=== PATIENT | female | born 1930 | race Caucasian/White ===

== ENCOUNTER → 2016-11-16 | Outpatient (CLI) | payer MEDICARE | LOC: GMAH 10:27 | PROVIDERS: ATTEND Family Medicine | DX: E78.00 Pure hypercholesterolemia, unspecified (principal) ==

== ENCOUNTER 2017-02-28 09:48 | Emergency (ER) | payer MEDICARE ==
[2017-02-28] MEDS ORDERED: methylPREDNISolone SODIUM SUC 125 MG/2 ML VIAL IM ONE (10:06)
[2017-02-28 10:09] VITALS: BP 135/108; TEMP 97; O2SAT 98
--- NOTE | 2017-02-28 10:11 | ED.PDOC ---
History of Present Illness - General Chief Complaint: Skin/Abrasion/Tear Stated Complaint: left elbow swelling and redness Time Seen by Provider: 02/28/17 10:00 Source: patient, RN notes reviewed, Vital Signs reviewed Exam Limitations: no limitations - History of Present Illness Initial Comments: Patient comes in with c/o of L elbow itching, redness and swelling X 2 days. Started while sitting out on her back porch Tuesday evening. She has been using OTC Benadryl cream but has not taken any orally for this. Timing/Duration: constant - 2 days ago Severity: moderate Location: extremities - L elbow Improving Factors: nothing Worsening Factors: nothing Associated Symptoms: itching Review of Systems - Review of Systems Constitutional: States: no symptoms reported Respiratory: States: no symptoms reported Cardiology: States: no symptoms reported Musculoskeletal: States: no symptoms reported Skin: States: see HPI All other Systems: No Change from Baseline Past Medical History (General) - Patient Medical History Hx Stroke: No Hx of COPD: No Hx Cardiac Disorders: No Hx Hypertension: Yes Hx Diabetes: No Surgical History: cholecystectomy, other - Social History Hx Tobacco Use: Yes - 1/2 pack a day Hx Alcohol Use: Yes - 2 glass wine daily Hx Substance Use: No Hx Substance Use Treatment: No Hx Depression: No - Activities of Daily Living Hospice Agency (if applicable):: None - Female History Patient is a Female of Child Bearing Age (10 -59 yrs old): No Patient : No Family Medical History - Family History Mother Family History: Unknown Physical Exam - Physical Exam General Appearance: Alert, Comfortable, No apparent distress, Well Developed, Well Groomed, Well Hydrated, Well Nourished Respiratory: no respiratory distress Extremity: normal range of motion, inflammation, swelling - Left elbow Neurologic: no motor/sensory deficits, alert, normal mood/affect, oriented x 3 Skin Exam: warm/dry, normal color Skin Problem Location: upper extremities - Left elbow Skin Character: erythema, swelling, urticarial, warm, other - Left elbow is erythematous, edematous and warm. No bursa swelling. Comments: Vital Signs 02/28/17 09:55 Temperature 97.0 F L Pulse Rate [ 89 pulse ox] Respiratory 20 Rate Blood Pressure 135/108 [Left Arm] O2 Sat by Pulse 98 Oximetry Progress - Progress Progress: 02/28/17 10:15 Solu-Medrol 125mg IM given Recommended OTC oral Benadryl and ice Warning given for any signs of infection. Departure - Departure Clinical Impression: Urticaria Insect bites Qualifiers: Encounter type: initial encounter Qualified Code(s): W57.XXXA - Bitten or stung by nonvenomous insect and other nonvenomous arthropods, initial encounter Time of Disposition: 10:35 Disposition: Discharge to Home or Self Care Condition: Good Departure Forms: ED Discharge - Pt. Copy, Patient Portal Self Enrollment Instructions: DI for Insect Allergy Diet: resume usual diet Activity: increase activity as tolerated Referrals: Neptali Pérez MD [Primary Care Provider] - 1-2 Weeks Additional Instructions: OTC Benadryl 1 pill every 6 hours as needed Ice area for 15-20 minutes 3-5X/day Any signs of infection follow up with your MD or return to ER
== END 2017-02-28 10:33 | disposition home or self-care (01) ==
LOC: ER 09:48
DX: S50.362A Insect bite (nonvenomous) of left elbow, initial encounter (principal); L50.9 Urticaria, unspecified; I10 Essential (primary) hypertension; F17.200 Nicotine dependence, unspecified, uncomplicated; W57.XXXA Bitten or stung by nonvenomous insect and other nonvenomous arthropods, initial encounter; Y92.008 Other place in unspecified non-institutional (private) residence as the place of occurrence of the external cause

== ENCOUNTER → 2017-11-16 | Outpatient (CLI) | payer MEDICARE | LOC: GMAH 11:33 | PROVIDERS: ATTEND Family Medicine | DX: I10 Essential (primary) hypertension (principal); E78.00 Pure hypercholesterolemia, unspecified ==

== ENCOUNTER 2018-02-27 14:03 | Inpatient (IN) | payer MEDICARE ==
[2018-02-27] MEDS ORDERED: ONDANSETRON INJ 4 MG/2 ML VIAL IV ONE (14:36)
[2018-02-27] MEDS ORDERED: MORPHINE SULFATE INJ 10 MG/ML VIAL IV ONE (14:38)
[2018-02-27] MEDS: SODIUM CHLORIDE 0.9% (FLUSH) 10 ML SYG IV PRN (14:49)
--- NOTE | 2018-02-27 15:12 | ED.PDOC ---
History of Present Illness - General Chief Complaint: Abdominal Pain Stated Complaint: CONSTIPATION Time Seen by Provider: 02/27/18 14:10 Information Source: patient Exam Limitations: no limitations - History of Present Illness Initial Comments: PT PRESENTS WITH COMPLAINT OF CONSTIPATION, ANAL LEAKAGE, AND URINARY RETENTION FOR THE PAST 24 HOURS. PT REPORTS INTERMITTENT EPISODES OF RECTAL PAIN AND STATES SHE IS ONLY ABLE TO HAVE SMALL BOWEL MOVEMENTS. PT REPORTS RECENT BACK INJURY AND STATES SHE HAS A FRACTURED VERTEBRAE. Abdominal Pain Onset Location: generalized abdomen Pain Radiation: other - RECTUM Quality: cramping, intermittent Timing/Duration: 24 hours Improving Factors: nothing Worsening Factors: nothing Associated Symptoms: back pain, other - URINARY RETENTION Review of Systems - Review of Systems Constitutional: Denies: chills, fever EENTM: Denies: nose congestion, throat swelling Respiratory: Denies: cough, short of breath Cardiology: Denies: chest pain, palpitations Gastrointestinal/Abdominal: States: see HPI, abdominal pain, constipation. Denies: diarrhea, nausea, vomiting Genitourinary: States: see HPI. Denies: dysuria, frequency Musculoskeletal: States: see HPI, back pain. Denies: muscle pain Skin: Denies: dryness, lesions Neurological: Denies: headache, numbness, paresthesia Endocrine: States: no symptoms reported Past Medical History (General) - Patient Medical History Hx Stroke: No Hx of COPD: No Hx Cardiac Disorders: No Hx Congestive Heart Failure: No Hx Hypertension: Yes Hx Diabetes: No Hx Cancer: No Hx Hepatitis C: No - Vaccination History Hx Tetanus, Diphtheria Vaccination: No Hx Influenza Vaccination: Yes Hx Pneumococcal Vaccination: Yes Immunizations Up to Date: No - Social History Hx Tobacco Use: Yes - 1/2 pack a day Hx Chewing Tobacco Use: No Hx Alcohol Use: Yes - 2 glass wine daily Hx Substance Use: No Hx Substance Use Treatment: No Hx Depression: No Feels Threatened In Home Enviroment: No Feels Threatened In a Relationship: No Hx Physical Abuse: No Hx Emotional Abuse: No Hx Suspected Abuse: No - Female History Patient is a Female of Child Bearing Age (10 -59 yrs old): No Patient : No Family Medical History - Family History Mother Family History: Unknown Physical Exam - Physical Exam General Appearance: Alert, Obvious distress, Well Developed, Well Groomed, Well Hydrated Eyes, Ears, Nose, Throat Exam: normal ENT inspection Neck: normal inspection Respiratory: lungs clear, normal breath sounds, no respiratory distress Cardiovascular/Chest: regular rate, rhythm, no edema, no murmur Gastrointestinal/Abdominal: soft, tenderness - IN THE LLQ Extremity: normal range of motion, non-tender, normal inspection Neurologic: alert, normal mood/affect, oriented x 3 Skin Exam: normal color, warm/dry Progress - Progress Progress: 02/27/18 15:52 PT RESTING COMFORTABLY ON RE-EVAL AFTER IV MORPHINE AND GARZA CATHETER INSERTION PUTTING OUT APROXIMATELY 600CC OF URINE. AWAITING CT AND LAB RESULTS. - EKG/XRAY/CT EKG: Sinus - @84BPM, NL INTERVALS, NL AXIS, no ST T wave changes - NO OLD EKGS FOR COMPARISON. CT Ordered: No CT Interpretation Call Back: No Departure - Departure Clinical Impression: Acute diverticulitis, Acute urinary retention Time of Disposition: 17:15 Disposition: Admit Patient Condition: Fair Departure Forms: ED Discharge - Pt. Copy, Patient Portal Self Enrollment Instructions: DI for Abdominal Pain-Adult Referrals: Neptali Pérez MD [Primary Care Provider] - 1-2 Weeks Home Medications: Ambulatory Orders Lisinopril 30 mg PO DAILY 02/28/17 Decision To Admit - Decistion To Admit Decision to Admit Reason: Admit from ER Decision to Admit Date: 02/27/18 Decision to Admit Time: 17:16 - CASE DISCUSSED WITH ERNESTINA BLACKWELL NP WHO AGREES TO ADMIT
--- NOTE | 2018-02-27 16:38 | CT ---
EXAM DESCRIPTION: Abdomen/Pelvis w/Contrast CLINICAL HISTORY: LLQ ABD TENDERNESS COMPARISON: None Available TECHNIQUE: Contiguous axial images of the abdomen and pelvis were obtained after the administration of intravenous contrast followed by reconstruction images.This exam was performed according to our departmental dose-optimization program, which includes automated exposure control, adjustment of the mA and/or kV according to patient size and/or use of iterative reconstruction technique. FINDINGS: There is mild soft tissue stranding of the mesentery of the pelvis and mild to moderate thickening of the wall of the rectosigmoid, with diverticulosis in this region. Findings suggest inflammation. Ischemia or neoplasm are less likely. Multiple nonobstructive right renal stones measuring up to 4 mm. A nonobstructive left renal stone measures 4 mm. Gallbladder is surgically absent. There is intrahepatic biliary dilatation and pneumobilia. Moderate stool is in the rectum. Urinary bladder contains a Coffey catheter and gas and is collapsed. No other acute abnormality. There are bony degenerative changes with moderately severe loss of height of T12 that is likely chronic. Extensive aortic calcification. No other significant bowel wall thickening. There is no hydronephrosis. Adrenal glands are within normal limits. Aorta is normal in caliber and tapering. No significant free fluid. No free air. No bowel obstruction. The appendix appears normal. No evidence of periappendiceal inflammation. IMPRESSION: Findings suggest inflammation of the distal colon. See additional findings. Electronically signed by: Jarocho Felder 02/27/2018 4:37 PM CDT
[2018-02-27] MEDS ORDERED: metroNIDAZOLE IV PREMIX 500MG 500 MG in PREMIX BAG 1 BAG IVPB ONE (16:47)
[2018-02-27] MEDS ORDERED: levoFLOXacin 750MG IV 750 MG in PREMIX BAG 1 BAG IVPB ONE (16:47)
[2018-02-27] MEDS ORDERED: metroNIDAZOLE IV PREMIX 500MG 100 ML IVPB ONE (17:29)
--- NOTE | 2018-02-27 20:49 | HP ---
SUPERVISING PHYSICIAN: Matthew Mayer MD CHIEF COMPLAINT: Abdominal pain. HISTORY OF PRESENT ILLNESS: This is an 87-year-old female who presented to the Emergency Room with abdominal pain. Apparently, she had been moving from one house in [facility] to another house. During that time, she had a fall and actually sustained a compression fracture. She was given some pain medications by her primary care provider, Dr. Pérez, but she states that her constipation actually started prior to this. Due to the constipation, she started to take some Milk of Magnesia. She took two doses on one day and then took another dose the next day. She also states she took a small Dulcolax pill. She does not give an exact timeframe on this, but it has probably been about a week ago. Since that time, she has started to have some diarrhea. She states she had several episodes of diarrhea and then started to have the abdominal pain. The abdominal pain pretty much started yesterday. For that reason, she came to the Emergency Room. When she came to the Emergency Room, her workup included labs as well as CT scan of the abdomen and pelvis. CT scan of the abdomen and pelvis showed mild soft tissue stranding of the mesentery of the pelvis and mild to moderate thickening of the wall of the rectosigmoid with diverticulosis in the region. There were also some nonobstructive renal stones measuring up to 4 mm on the right and nonobstructive renal stone, 4 mm, on the left as well. It also notes that there is moderate stool in the rectum. However, on my personal review of the CT scan, it looks as if there is significant fecal material throughout the colon. Her labs show an elevated white count of 17, 000. She is quite tender in the left lower quadrant and for these reasons, she was referred for admission. At the time of examination, the patient is a little bit uncomfortable, but states she is better than when she came in. She is in no severe distress. PAST MEDICAL HISTORY: 1. Hypertension. 2. Diverticulosis without diverticulitis. Her last colonoscopy was apparently 5 years ago. This was done in [place], I believe. PAST SURGICAL HISTORY: 1. Hysterectomy. 2. Gallbladder surgery. 3. Cervical spine surgery. 4. Tonsillectomy. 5. Eye surgery. CURRENT MEDICATIONS: 1. Lisinopril 30 mg p.o. daily. 2. Tramadol 50 to 100 mg p.o. q.6h. p.r.n. for pain. ALLERGIES: NO KNOWN DRUG ALLERGIES. FAMILY HISTORY: Reviewed and noncontributory. SOCIAL HISTORY: The patient lives alone and is . No drinking, no smoking, no illicit drugs. She had a son of liver disease in September. She has another son in [place] that she is not close with and a daughter who lives in [place]. REVIEW OF SYSTEMS: CONSTITUTIONAL: No fever or chills. No recent weight loss or weight gain. HEENT: No headaches, vision changes, ear pain, nasal congestion or throat pain. RESPIRATORY: No cough, hemoptysis or pleuritic chest pain. CARDIOVASCULAR: No chest pain, palpitations or peripheral edema. GASTROINTESTINAL: Positive for some nausea, no vomiting. Positive for constipation and diarrhea. Positive for abdominal pain. GENITOURINARY: No dysuria, frequency or flank pain. HEMATOLOGIC: No easy bruising and no transfusion reaction. MUSCULOSKELETAL: Positive for back pain. No joint pain or joint swelling. ENDOCRINE: No polydipsia, polyuria, polyphagia. No heat or cold intolerance. NEUROLOGIC: No syncope, paresthesias, dizziness. PHYSICAL EXAMINATION: VITAL SIGNS: Blood pressure 114/65. Heart rate 85. Respiratory rate 98.8. Oxygen saturation 97%. GENERAL: Ms. Rodríguez is an 87-year-old female in severe distress currently. HEENT: Normocephalic, atraumatic. Pupils are unequal, but reactive. Left pupil is 2mm, right is 4mm. This is chronic. No nasal drainage. Throat with moist mucosa. NECK: Supple. Midline trachea. No jugular venous distention. CHEST: Symmetrical with equal rise and fall of the chest with inspiration and expiration. Lung sounds are clear to auscultation bilaterally. CARDIOVASCULAR: Regular rate and rhythm. Normal S1, S2. ABDOMEN: Soft. Positive bowel sounds. She does have some tenderness to palpation primarily in the left lower quadrant. GENITOURINARY: Deferred. EXTREMITIES: Pulses 2+. Capillary refill is less than 2 seconds. NEUROLOGIC: The patient is alert and oriented. Moves all extremities. Extraocular movements are intact. LABORATORY: Labs and films are as discussed in history of present illness. ASSESSMENT: 1. Abdominal pain with possible colitis versus diverticulitis. 2. Constipation. 3. History of hypertension, but currently controlled. 4. Mild anemia. 5. Hyponatremia. PLAN: At this time, we will admit the patient with abdominal pain and place on empiric antibiotics. I am going to give her some IV fluids and reevaluate her labs as well as abdominal x-ray in the morning as well. I did speak with Dr. Greenberg who agrees to see the patient in the morning. We will keep her NPO for now and hopefully she will improve in the next 24 to 48 hours. I do feel like she has quite a bit of stool in her colon on x-ray. I am not going to give her anymore products to clear out until she is evaluated by Dr. Greenberg in the morning. #[id number] [facility]
[2018-02-27] MEDS ORDERED: KCL 20 MEQ/NS 1,000 ML IVS ONE (21:34)
[2018-02-27] MEDS: KCL 20 MEQ/NS 1,000 ML IVS PRN (21:36)
[2018-02-27] MEDS: ENOXAPARIN SODIUM 40 MG/0.4 ML SYG SUBCU SCH (21:36)
[2018-02-27] MEDS: IV SET AND CAP CHANGE INJ INJ SCH (21:37)
[2018-02-28] MEDS ORDERED: metroNIDAZOLE IV PREMIX 500MG 100 ML IVPB ONE ×3 (01:33→13:49)
[2018-02-28] MEDS: metroNIDAZOLE IV PREMIX 500MG 500 MG in PREMIX BAG 1 BAG IVPB SCH ×3 (01:36→17:36)
[2018-02-28] MEDS: MORPHINE SULFATE INJ 10 MG/ML VIAL IV PRN ×5 (05:26→21:24)
--- NOTE | 2018-02-28 07:10 | RAD ---
Procedure: XR ABDOMEN 2 VIEWS SUPINE ERECT Exam Date: 02/28/2018 Ordering Provider: Tristan Feliciano Clinical Indication: abdominal pain Comparison: 02/27/2018 CT abdomen pelvis Findings: Cholecystectomy clips. Nonobstructive bowel gas pattern. There is no pneumoperitoneum. Multiple calcifications projecting over the expected region of the right kidney, largest measuring 4 mm. Pelvic phleboliths. There is no acute osseous abnormality. Impression: 1. Right nephrolithiasis. Electronically signed by: Andrey De Los Santos MD 02/28/2018 7:08 AM CDT
[2018-02-28] MEDS ORDERED: KCL 20 MEQ/NS 1,000 ML IVS ONE (07:39)
[2018-02-28] MEDS: KCL 20 MEQ/NS 1,000 ML IVS PRN (07:40)
[2018-02-28] MEDS: SODIUM CHLORIDE 0.9% (FLUSH) 10 ML SYG IV PRN (08:21)
--- NOTE | 2018-02-28 08:28 | CONS ---
DATE OF CONSULTATION: 02/28/18 HISTORY OF PRESENT ILLNESS: The patient is an 87-year-old female who was admitted through the Emergency Room yesterday with abdominal pain, constipation , diarrhea and urinary retention. The patient states that she has recently fractured her back and been on some pain medication for that. She had begun having problems with her bowel movements and took medication for bowel movements and only had a small amount of loose stools without improvement in her pain and had been unable to void. She also complained of pain in the rectum. She denies previous episodes of melanotic stools, blood in her stool or otherwise change in her bowel movements. She states she has had a colonoscopy probably 5 years ago and was told she would not need another. PAST MEDICAL HISTORY: 1. Hypertension. There is no history of congestive heart failure. She states there is no history of chronic obstructive pulmonary disease despite her tobacco use. PAST SURGICAL HISTORY: 1. Cholecystectomy. 2. Childbirth. FAMILY HISTORY: Noncontributory. SOCIAL HISTORY: The patient has at least a 40 pack year history of tobacco abuse and also secondhand smoke. No history of alcohol abuse. REVIEW OF SYSTEMS: As noted in the history of present illness. Otherwise, no complaints of fever, chills, weight loss, hematuria or dysuria and no upper respiratory symptoms. She denies chest pain and shortness of breath. PHYSICAL EXAMINATION: GENERAL: The patient is awake, alert, cooperative, in mild distress. VITAL SIGNS: The patient is currently afebrile, normotensive. HEENT: Sclerae nonicteric. Mucous membranes moist. NECK: Without adenopathy. BACK: Without CVA tenderness. I did not palpate her spine. CHEST: Equal breath sounds bilaterally. HEART: Regular rhythm. ABDOMEN: Soft, mildly distended with diffuse tenderness, greatest in the left lower quadrant. PELVIC/RECTAL: Deferred. EXTREMITIES: Without cyanosis, clubbing or edema. LABORATORY: White count 13,000 this morning, decreased from 17,000. Hemoglobin is down from 11.3 to 11. Platelet count 426,000 this morning. Segmented neutrophils are down to 83 from 86. Electrolytes reveal potassium up to 5.5 this morning, creatinine 0.77. Blood sugar 93. Liver functions in the Emergency Room were within normal limits last night. CT scan was worrisome for wall thickening and inflammatory stranding with no free air or free fluid involving mainly the sigmoid colon, also diverticula were identified. This morning's x-ray reveals no free air or dilated loops of bowel. ASSESSMENT: 1. Diverticulitis versus ischemic colitis. PLAN: Continue bowel rest, IV fluids and IV antibiotics. We will review the x- rays with the radiologist. #[id number] [facility]
--- NOTE | 2018-02-28 10:21 | PN ---
SUPERVISING PHYSICIAN: Matthew Mayer MD DATE: 02/28/18 SUBJECTIVE: The patient states she feels a little bit better than she did when she came in, but is still having some discomfort. She states she got some morphine earlier this morning. She says whereas the pain was coming about ever 15 minutes before, it is a longer length of time in between the pain. Dr. Greenberg saw her this morning as well and is going to review her films. As stated before , she is beader tender. OBJECTIVE: VITAL SIGNS: Blood pressure 139/72. Heart rate 82. Respiratory rate 18. Temperature 98.2. Oxygen saturation 95%. GENERAL: Ms. Rodríguez is an 87-year-old female in no active distress. NEUROLOGIC: Alert and oriented. LUNGS: Clear to auscultation bilaterally. CARDIOVASCULAR: Regular rate and rhythm. Normal S1, S2. ABDOMEN: Soft. Positive bowel sounds. She remains tender to palpation primarily in the left lower quadrant. GENITOURINARY: Deferred. EXTREMITIES: Lower extremities with no edema. Pulses 2+. Capillary refill is less than 2 seconds. LABORATORY: Labs are reviewed and show improvement in her white count to 13.2, hemoglobin 11.0, platelet count 426. Chemistry shows an elevated potassium of 5.5 and her primary IV fluids have been discontinued which did contain potassium. Her abdominal film is unremarkable. ASSESSMENT: 1. Abdominal pain with possible colitis versus diverticulitis. 2. Constipation. 3. History of hypertension, currently controlled. 4. Mild anemia. 5. Hyponatremia, resolved. 6. Hyperkalemia, likely due to potassium containing IV fluids. PLAN: In discussing with Dr. Greenberg, he is going to review her films later today with the radiologist. I feel like there is still probably stool in her colon, so we will defer to him whether or not he wants to give her medications to clear her out. We will continue current IV antibiotics. I have changed the IV fluids to D5 half normal saline to not contain any potassium. We will recheck her labs in the morning and I have also instructed her that she has p.r.n. pain medications to ask for because she seemed to not understand this. #[id number] [facility]
[2018-02-28] MEDS: DEX 5% W/NACL 0.45% 1000ML 1,000 ML IVS PRN ×2 (10:32→22:48)
[2018-02-28] MEDS ORDERED: MORPHINE SULFATE INJ 10 MG/ML VIAL ONE (10:54)
[2018-02-28] MEDS ORDERED: BISACODYL SUPPOSITORY 10 MG PR ONE (14:54)
[2018-02-28] MEDS ORDERED: levoFLOXacin 750MG IV 750 MG in PREMIX BAG 1 BAG IVPB SCH (18:30)
[2018-02-28] MEDS: levoFLOXacin 250MG IV 50 ML IVPB SCH (18:47)
[2018-02-28] MEDS: ENOXAPARIN SODIUM 40 MG/0.4 ML SYG SUBCU SCH (21:12)
[2018-03-01] MEDS ORDERED: metroNIDAZOLE IV PREMIX 500MG 100 ML IVPB ONE ×3 (01:46→17:46)
[2018-03-01] MEDS: metroNIDAZOLE IV PREMIX 500MG 500 MG in PREMIX BAG 1 BAG IVPB SCH ×3 (01:50→17:49)
[2018-03-01] MEDS: MORPHINE SULFATE INJ 10 MG/ML VIAL IV PRN ×3 (01:51→19:00)
--- NOTE | 2018-03-01 08:05 | RAD ---
Procedure: XR ABDOMEN 2 VIEWS SUPINE ERECT Exam Date: 03/01/2018 Ordering Provider: PATRICIA CHAU MD Clinical Indication: Abdominal pain Comparison: 02/28/2018 Findings: Cholecystectomy clips. Nonobstructive bowel gas pattern. Large stool burden in the rectum. There is no pneumoperitoneum. Multiple calcifications projecting over the expected region of the right kidney, largest measuring 4 mm. Punctate calcification projecting over the expected region of the left kidney. Pelvic phleboliths. There is no acute osseous abnormality. Mild levocurvature of the lumbar spine. Impression: 1. Bilateral nephrolithiasis. 2. Large stool burden in the rectum. Electronically signed by: Andrey De Los Santos MD 03/01/2018 8:04 AM CDT
[2018-03-01] MEDS: SODIUM CHLORIDE 0.9% (FLUSH) 10 ML SYG IV PRN (09:13)
[2018-03-01] MEDS: DEX 5% W/NACL 0.45% 1000ML 1,000 ML IVS PRN (09:18)
[2018-03-01] MEDS ORDERED: MAGNESIUM SULFATE PREMIX 2GM 2 GM in PREMIX BAG 1 BAG IVPB ONE (09:37)
[2018-03-01] MEDS ORDERED: MAGNESIUM SULFATE PREMIX 2GM 50 ML IVPB ONE (09:48)
[2018-03-01] MEDS: DEX 5% W/NACL 0.9% 1000ML 1,000 ML IVS PRN (11:18)
[2018-03-01] MEDS: HYDROCORTISONE 25 MG SUPPOSITORY PR SCH ×3 (11:20→20:38)
[2018-03-01] MEDS: levoFLOXacin 250MG IV 50 ML IVPB SCH (19:02)
[2018-03-01] MEDS: ENOXAPARIN SODIUM 40 MG/0.4 ML SYG SUBCU SCH (20:38)
[2018-03-02] MEDS: DEX 5% W/NACL 0.9% 1000ML 1,000 ML IVS PRN ×2 (00:08→13:10)
--- NOTE | 2018-03-02 00:44 | PN ---
DATE: 03/01/18 SUPERVISING PHYSICIAN: Matthew Mayer M.D. SUBJECTIVE: The patient continues to have some mild abdominal discomfort, although she says it is improving. Her biggest complaint is that she has some spasmodic type pains associated with her rectum. She has not been nauseated. She has been afebrile. OBJECTIVE: VITAL SIGNS: T max 98.9, pulse 79, blood pressure 137/69, respirations 18, satting 94% on room air. I's and O's show a positive balance of 1350 with 2350 in, 1000 out. She has had several bowel movements. Weight 48.1 kg. CHEST: Lungs were clear to auscultation, just slightly diminished towards the bases. HEART: Regular rate and rhythm. ABDOMEN: Soft with continued tenderness, more so on the left but no rebound or guarding. ABDOMEN: Bowel sounds are positive. EXTREMITIES: No clubbing, cyanosis or edema. NEUROLOGIC: She remains alert and oriented times three. LABORATORY: White count has normalized at 9,600, hemoglobin 10.3, hematocrit 30.2, platelet count 422,000. Differential now shows to be without a left shift. Chemistries show a mildly low sodium at 133, potassium is normal at 3.6 today with BUN 7, creatinine 0.65, calcium 8.6, magnesium is low at 1.6. RADIOLOGY: Abdominal x-ray this morning per radiology interpretation, flat and upright, shows bilateral nephrolithiasis with a large stool burden in the rectum. ASSESSMENT: 1. Abdominal pain likely related to diverticulitis, although cannot completely rule out colitis. 2. Continued constipation with a large burden of stool in the rectum causing some rectal pain. 3. Hypertension, controlled. 4. Anemia, normocytic/normochromic without any evidence of acute loss, uncertain etiology, probably chronic in nature. 5. Hyponatremia, persistent requiring management with IV fluids. 6. Hyperkalemia, likely due to previous IV maintenance fluids with IV potassium now normalized. PLAN: Will continue to follow the patient along with Dr. Greenberg with discussion of plan of care today. Given that she is having some discomfort in the rectal area, will try some Anusol suppositories as well as sitz baths as tolerated and encourage a good bowel movement today. Will start her on clear liquids. She does remain on antibiotics, including Levaquin and Flagyl. I have changed her fluids to D5 normal saline at 100. Will plan to recheck labs in the morning. Will defer discharge planning to Dr. Greenberg. Until then, continue to monitor and treat appropriately. #[id number] [facility]
[2018-03-02] MEDS ORDERED: metroNIDAZOLE IV PREMIX 500MG 100 ML IVPB ONE ×3 (01:54→17:45)
[2018-03-02] MEDS: metroNIDAZOLE IV PREMIX 500MG 500 MG in PREMIX BAG 1 BAG IVPB SCH ×3 (02:12→17:56)
[2018-03-02] MEDS: MORPHINE SULFATE INJ 10 MG/ML VIAL IV PRN ×4 (06:08→23:18)
[2018-03-02] MEDS ORDERED: ALBUTEROL SULFATE 2.5 MG/3 ML VIAL NEB PRN (09:15)
[2018-03-02] MEDS ORDERED: ALBUTEROL SULFATE 2.5 MG/3 ML VIAL NEB ONE ×3 (09:25→15:41)
[2018-03-02] MEDS: HYDROCORTISONE 25 MG SUPPOSITORY PR SCH ×3 (10:10→20:42)
[2018-03-02] MEDS ORDERED: MAGNESIUM HYDROXIDE 30 ML UD PO ONE (11:31)
[2018-03-02] MEDS ORDERED: MAGNESIUM HYDROXIDE 30 ML UD ONE (11:37)
[2018-03-02] MEDS: ALBUTEROL SULFATE 2.5 MG/3 ML VIAL NEB SCH ×3 (12:24→20:13)
--- NOTE | 2018-03-02 17:02 | RAD ---
EXAM DESCRIPTION: Chest,2 Views CLINICAL HISTORY: sob COMPARISON: None. TECHNIQUE: AP portable 1037 hours upright. This was changed from a 2 view chest due to patient condition. FINDINGS: Lungs: Lungs are slightly over expanded bilaterally. Bibasilar atelectasis. No consolidation. Bilateral small nodular densities. No pleural effusion or pneumothorax. Cardiopulmonary vascular structures are unremarkable. Atherosclerotic calcifications in the aorta. No mediastinal widening. Bony thoracic structures but decreased density and bilateral shoulder arthrosis. IMPRESSION: Mild hyperexpansion of the lungs and bibasilar atelectasis. Senescent changes also. Small bilateral pulmonary nodules. No acute infiltrate or pleural effusion. Pulmonary vascularity unremarkable. Recommend comparison to prior chest x-ray when available to compare the pulmonary nodules in lung bases. Electronically signed by: Jarocho Matos MD 03/02/2018 1:31 PM CDT
[2018-03-02] MEDS: levoFLOXacin 250MG IV 50 ML IVPB SCH (18:57)
[2018-03-02] MEDS: IV SET AND CAP CHANGE INJ INJ SCH (20:42)
[2018-03-02] MEDS: ENOXAPARIN SODIUM 40 MG/0.4 ML SYG SUBCU SCH (20:42)
--- NOTE | 2018-03-02 21:41 | PN ---
DATE: 03/02/18 SUPERVISING PHYSICIAN: Matthew Mayer M.D. SUBJECTIVE: The patient continues to have rectal spasms and is hesitant to allow the nurses to give her the Anusol suppositories, and refuses to have sitz baths. She notes that her pain is much less, almost gone in her abdomen as compared to yesterday, but the biggest problem she has is the rectal spasms. She is yet to have a large bowel movement. She has remained afebrile but as noted by Respiratory, starting to sound a little coarse in her lung sounds and has developed a cough, and at times is showing some desaturations on room air. I discussed this with the patient and encouraged her to utilize her incentive spirometry and to get up and ambulate to prevent any other further complications such as atelectasis and developing pneumonia. She also knows that this will assist in hopefully allowing her to have a good bowel movement. OBJECTIVE: VITAL SIGNS: Temperature 98.8, pulse 80, blood pressure 124/84, respirations 18, satting anywhere from 87% on room air up to 95 after breathing treatments and showing 95% on nasal cannula at rest on 2 liters. I's and O's show a positive balance of 1670 with 3020 in, 1350 out. Weight is 48.7 kg. CHEST: Lung sounds were actually clearer but just diminished towards the bases. I did not notice any rhonchi, wheezing or rales. HEART: Regular rate and rhythm. ABDOMEN: Today is soft, just some slight tenderness again noted on the left lower quadrant but no rebound tenderness. No masses. No guarding. EXTREMITIES: No clubbing, cyanosis or edema. NEUROLOGIC: She is alert and oriented times three. LABORATORY: Chemistries this morning show sodium 133, BUN 7, creatinine 0.65, magnesium is low at 1.6. RADIOLOGY: Chest x-ray this morning per radiology interpretation showed mild hyperexpansion of the lungs and bibasilar atelectasis. Senescent changes noted. There is also note of small bilateral pulmonary nodules but no acute infiltrate or pleural effusion. Pulmonary vascularity was unremarkable. Recommendations for comparison x-rays followup to compare pulmonary nodules in lung bases. ASSESSMENT: 1. Abdominal pain likely related to diverticulitis, although cannot completely rule out colitis with the patient improving with Flagyl and Levaquin. 2. Constipation with a large burden of stool continued in the rectum resulting in rectal spasms. 3. Hypertension, controlled. 4. Normocytic/normochromic anemia with no evidence of acute loss, etiology is uncertain but probably more chronic in nature. 5. Hyponatremia improving with IV fluids. PLAN: Will continue to follow the patient along with Dr. Greenberg. This morning, she is encouraged to ambulate as well as take a shower. Will try 45 mL of Milk of Magnesia and again encourage the patient to go to the bedside commode to assist in bowel movements. She does remain on clear liquids until she has shown a good movement. She continues with current antibiotic therapy as noted with Levaquin and Flagyl. She does continue on D5 normal saline at 100 as she is not having a lot of intake and her urine is starting to look a little dark. Will go ahead and recheck labs in the morning and again anticipate discharge in the next 1 to 2 days, and defer further planning to Dr. Greenberg. Until then, will continue to monitor and treat appropriately. #[id number] [facility]
[2018-03-03] MEDS ORDERED: metroNIDAZOLE IV PREMIX 500MG 100 ML IVPB ONE ×3 (00:38→17:19)
[2018-03-03] MEDS: metroNIDAZOLE IV PREMIX 500MG 500 MG in PREMIX BAG 1 BAG IVPB SCH ×3 (01:35→17:34)
[2018-03-03] MEDS: DEX 5% W/NACL 0.9% 1000ML 1,000 ML IVS PRN (01:42)
--- NOTE | 2018-03-03 06:45 | RAD ---
EXAM: 1 VIEW SINGLE ABDOMEN AND PA CHEST RADIOGRAPHS CLINICAL INDICATION: Diverticulitis versus colitis. Constipation? COMPARISON: Yesterday's chest radiograph. FINDINGS: Right iliac size is normal. Improving bibasilar congestion versus atelectasis. Unchanged severe COPD. No pneumothorax. No bowel obstruction or free peritoneal gas. Suspect large amount of stool in the rectum. No evidence of constipation on this single view. Degenerative disease throughout the spine. IMPRESSION: 1. COPD without superimposed acute cardiopulmonary disease. 2. Suspect large amount of stool in the rectum. No mechanical bowel obstruction or extraluminal bowel gas. Electronically signed by: Yuniel Ron MD 03/03/2018 6:44 AM CDT
[2018-03-03] MEDS ORDERED: LISINOPRIL 10 MG TAB ONE (07:00)
[2018-03-03] MEDS: ALBUTEROL SULFATE 2.5 MG/3 ML VIAL NEB SCH ×4 (07:49→19:38)
[2018-03-03] MEDS: HYDROCORTISONE 25 MG SUPPOSITORY PR SCH ×3 (08:34→20:53)
[2018-03-03] MEDS: LISINOPRIL 10 MG TAB PO SCH (08:58)
[2018-03-03] MEDS ORDERED: LIDOCAINE 2 % GEL 5 ML TUBE TOP ONE (09:04)
[2018-03-03] MEDS ORDERED: ACETAMINOPHEN W/COD #3 TAB 1 EA TAB PO PRN (09:40)
[2018-03-03] MEDS: MORPHINE SULFATE INJ 10 MG/ML VIAL IV PRN (09:43)
--- NOTE | 2018-03-03 10:11 | PN ---
SUPERVISING PHYSICIAN: Matthew Mayer MD DATE: 03/03/18 SUBJECTIVE: The patient is sitting up in bed. At this time, she has no complaints of pain, but is scared to have a bowel movement due to the pain in her lower back from her compression fracture. We discussed different options and we are going to give her some pain medication about the same time she gets her scheduled suppository. We will also use lidocaine with the suppository insertion and hopefully she can have a bowel movement with less discomfort. Otherwise, she denies shortness of breath, nausea, vomiting or abdominal pain. OBJECTIVE: VITAL SIGNS: Afebrile. Heart rate 73. Blood pressure 120/70. Respiratory rate 20. O2 saturation 98% on 2 liters nasal cannula. RESPIRATORY: Essentially clear to auscultation bilaterally. CARDIAC: Regular rate and rhythm. GASTROINTESTINAL: Abdomen is soft, nondistended, nontender. Bowel sounds are positive. EXTREMITIES: No cyanosis, clubbing or edema. NEUROLOGIC: Awake, alert and oriented times three. LABORATORY: WBCs normalized to 9.6 with hemoglobin 10.3 and hematocrit 30.2. Electrolytes are basically within normal limits with the exception of her calcium is slightly low at 8. Glucose 116. Serum osmolality is 274.3. Abdominal x-ray shows 1) Chronic obstructive pulmonary disease without superimposed acute cardiopulmonary disease, 2) Suspect large amount of stool in the rectum. No mechanical bowel obstruction or extraluminal bowel gas. All other labs and films have been reviewed via the EMR. ASSESSMENT: 1. Abdominal pain likely related to diverticulitis, although cannot completely rule out colitis with the patient improving with Flagyl and Levaquin. 2. Constipation with a large burden of stool continued in the rectum resulting in rectal spasms. 3. Hypertension, controlled. 4. Normocytic/normochromic anemia with no evidence of acute loss, etiology is uncertain but probably more chronic in nature. 5. Hyponatremia, now within normal limits. 6. History of recent compression fracture of the lower back due to fall. PLAN: We will continue present supportive care. I have encouraged good pulmonary hygiene. To help with the discomfort of a bowel movement, she has scheduled suppositories and I have ordered some lidocaine gel with the insertion of the suppository as well as instructed to give her some pain medication. Previously her pain medication was only morphine IV, so I have ordered Tylenol #3. She is taking p.o. fluids well, so I have discontinued her IV. She will continue with clear liquids for now until I speak with Dr. Greenberg and/or until she has a bowel movement. At that point, we will need to start her on a soft diet as we do not need any further complications with constipation. I have ordered routine lab for in the morning. We will continue to monitor the patient closely and follow as needed. Dr. Mayer is the collaborating physician and available for consultation. #[id number] [facility]lyss[facility]
[2018-03-03] MEDS: LIDOCAINE 2 % GEL 5 ML TUBE TOP PRN (15:02)
[2018-03-03] MEDS: levoFLOXacin 250MG IV 50 ML IVPB SCH (18:23)
[2018-03-03] MEDS: ENOXAPARIN SODIUM 40 MG/0.4 ML SYG SUBCU SCH (20:53)
[2018-03-04] MEDS: MORPHINE SULFATE INJ 10 MG/ML VIAL IV PRN ×3 (01:16→14:45)
[2018-03-04] MEDS ORDERED: metroNIDAZOLE IV PREMIX 500MG 100 ML IVPB ONE ×4 (01:20→19:41)
[2018-03-04] MEDS: metroNIDAZOLE IV PREMIX 500MG 500 MG in PREMIX BAG 1 BAG IVPB SCH ×3 (01:26→17:51)
[2018-03-04] MEDS: ALBUTEROL SULFATE 2.5 MG/3 ML VIAL NEB SCH ×4 (07:52→20:12)
--- NOTE | 2018-03-04 09:22 | RAD ---
EXAM DESCRIPTION: Abdomen Flat Upright CLINICAL HISTORY: constipation/ diarrhea COMPARISON: None FINDINGS: Supine and upright images of the abdomen were submitted. There is atherosclerosis. There is air within the bowel without discrete evidence of bowel obstruction. There is no free air in the abdomen. IMPRESSION: No acute abnormalities. Electronically signed by: Collins Mcadams MD 03/04/2018 9:21 AM CDT
[2018-03-04] MEDS: LISINOPRIL 10 MG TAB PO SCH (09:32)
[2018-03-04] MEDS: HYDROCORTISONE 25 MG SUPPOSITORY PR SCH ×3 (09:32→20:57)
[2018-03-04] MEDS: LIDOCAINE 2 % GEL 5 ML TUBE TOP PRN ×2 (09:37→15:43)
[2018-03-04] MEDS: SODIUM CHLORIDE 0.9% (FLUSH) 10 ML SYG IV PRN ×4 (09:42→17:51)
[2018-03-04] MEDS ORDERED: MAGNESIUM SULFATE PREMIX 2GM 2 GM in PREMIX BAG 1 BAG IVPB ONE (10:46)
[2018-03-04] MEDS ORDERED: POTASSIUM CHLORIDE 20 MEQ TAB PO ONE (10:46)
[2018-03-04] MEDS ORDERED: MAGNESIUM SULFATE PREMIX 2GM 50 ML IVPB ONE (11:28)
[2018-03-04] MEDS: SODIUM PHOS/BIPHOS ENEMA ADULT 133 ML BTTL PR ONE ×2 (11:46→13:50)
--- NOTE | 2018-03-04 15:35 | PN ---
DATE: 03/04/18 SUPERVISING PHYSICIAN: Matthew Mayer M.D. SUBJECTIVE: The patient is lying in bed. She still complains of pain with having bowel movements, but using the Lidocaine as well as the pain medication has helped. She has no complaints of chest pain, nausea, vomiting or shortness of breath. Her appetite is still poor but she is trying to increase her p.o. fluids. OBJECTIVE: VITAL SIGNS: She is afebrile, heart rate 99, blood pressure 136/71, respiratory rate 18, O2 sat is 94% on 2 liters nasal cannula. RESPIRATORY: Essentially clear to auscultation bilaterally. CARDIAC: Regular rate and rhythm. ABDOMEN: Soft, nondistended, non-tender, except there is some very mild tenderness in the suprapubic area. No rebound tenderness or guarding. Bowel sounds are positive. EXTREMITIES: No cyanosis, clubbing or edema. LABORATORY: White count is normal at 8.6 with hemoglobin 8.8 and 26.2, that is down 1.5 grams from yesterday's hemoglobin. Potassium is slightly low at 3.5 with magnesium 1.7. Calcium is also 8.1. Abdominal x-ray shows no acute abnormalities, although her x-ray continues to look like there is stool in the rectum as on yesterday's x-ray. All other labs and films have been reviewed via the EMR. ASSESSMENT: 1. Abdominal pain likely related to diverticulitis, although cannot completely rule out colitis with the patient improving with Flagyl and Levaquin. 2. Constipation with a large burden of stool continued in the rectum resulting in rectal spasms. 3. Hypertension, controlled. 4. Normocytic/normochromic anemia with no evidence of acute loss, etiology is uncertain but probably more chronic in nature. Hemoglobin this morning was 8.8. 5. Hyponatremia, now within normal limits. 6. History of recent compression fracture of the lower back due to fall. PLAN: We will continue present supportive care. I have ordered guaiacs on her stools. I have given her potassium replacement as well as magnesium replacement and will recheck her labs in the morning. She continues to be very weak, so we will keep that Coffey catheter at least for another day or so. Hopefully we can get that discontinued in the next 24 to 48 hours. She will also need a PT evaluation for possible Swing Bed and has agreed to home health on discharge. I have also given her a Fleets enema. If that fails, we will give her some Milk of Magnesia tomorrow. She will continue with her physical therapy as ordered, but I have also added a consultation for Swing Bed as well as safety on discharge Will continue to monitor her closely and followup as needed. #[id number] [facility]
[2018-03-04] MEDS: levoFLOXacin 250MG IV 50 ML IVPB SCH (18:43)
[2018-03-04] MEDS: ENOXAPARIN SODIUM 40 MG/0.4 ML SYG SUBCU SCH (20:57)
[2018-03-05] MEDS: metroNIDAZOLE IV PREMIX 500MG 500 MG in PREMIX BAG 1 BAG IVPB SCH ×3 (02:04→17:36)
[2018-03-05] MEDS: MORPHINE SULFATE INJ 10 MG/ML VIAL IV PRN (06:07)
[2018-03-05] MEDS ORDERED: metroNIDAZOLE IV PREMIX 500MG 100 ML IVPB ONE ×2 (08:59→16:41)
[2018-03-05] MEDS ORDERED: MAGNESIUM SULFATE PREMIX 2GM 2 GM in PREMIX BAG 1 BAG IVPB ONE (09:09)
[2018-03-05] MEDS ORDERED: OPIUM PR PRN (09:29)
[2018-03-05] MEDS ORDERED: BELLADONNA PR PRN (09:29)
[2018-03-05] MEDS: ALBUTEROL SULFATE 2.5 MG/3 ML VIAL NEB SCH ×2 (10:09→17:39)
--- NOTE | 2018-03-05 10:33 | RAD ---
EXAM DESCRIPTION: Abdomen 1 View CLINICAL HISTORY: stool in rectum COMPARISON: None. FINDINGS: Single supine view of the abdomen was submitted. There is no evidence of bowel obstruction. There is no acute osseous process visualized. There is atherosclerosis. Surgical clips in the right upper abdomen compatible with prior cholecystectomy. IMPRESSION: No acute abnormalities. Electronically signed by: Collins Mcadams MD 03/05/2018 10:32 AM CDT
[2018-03-05] MEDS: SODIUM CHLORIDE 0.9% (FLUSH) 10 ML SYG IV PRN ×5 (10:47→21:19)
[2018-03-05] MEDS: LISINOPRIL 10 MG TAB PO SCH (10:59)
[2018-03-05] MEDS: traMADol HCL 50 MG TAB PO PRN ×3 (10:59→21:58)
[2018-03-05] MEDS: HYDROCORTISONE 25 MG SUPPOSITORY PR SCH (11:46)
[2018-03-05] MEDS ORDERED: MAGNESIUM SULFATE PREMIX 2GM 50 ML IVPB ONE (11:48)
--- NOTE | 2018-03-05 16:12 | PN ---
DATE: 03/05/18 SUPERVISING PHYSICIAN: Matthew Mayer M.D. SUBJECTIVE: The patient is lying in bed. She has had several bowel movements and is feeling some better. She continues to have rectal spasms. We discussed that we were going to discontinue her IV pain medications and changing her suppositories that would help her spasms. She continues to be agreeable for a Swing Bed evaluation as well as agreeing to home health with physical therapy on discharge from the hospital. Otherwise, no complaints of chest pain, nausea , vomiting or shortness of breath. OBJECTIVE: VITAL SIGNS: T-max 24 hours is 99, heart rate 84, blood pressure 145/67, respiratory rate 20, O2 saturation is 92% on room air. I&O: She has had multiple small soft bowel movements over the past 24 hours. RESPIRATORY: Essentially clear to auscultation bilaterally. CARDIAC: Regular rate and rhythm. ABDOMEN: Soft, nondistended, non-tender. Bowel sounds are positive. NEURO: She is awake, alert, and oriented x3. LABORATORY: Hemoglobin and hematocrit stable at 9.8 and 28.5. Electrolytes are within normal limits with the exception that her magnesium is low at 1.7. Abdominal x-ray shows no acute abnormalities. All other labs and films have been reviewed via the EMR. ASSESSMENT: 1. Abdominal pain likely related to diverticulitis, although cannot completely rule out colitis with the patient improving with Flagyl and Levaquin. 2. Constipation with a large burden of stool continued in the rectum resulting in rectal spasms. 3. Hypertension, controlled. 4. Normocytic/normochromic anemia with no evidence of acute loss, etiology is uncertain but probably more chronic in nature. Hemoglobin yesterday was 8.8, this morning was 9.8. 5. Hyponatremia, now within normal limits. 6. History of recent compression fracture of the lower back due to fall. PLAN: We will continue present supportive care. She received a Fleets enema yesterday and had good results but I will discontinue her Anusol suppositories and I have changed to be suppositories as needed for rectal spasms. I have also discontinued her morphine and added Tramadol for pain. She does have physical therapy evaluation for Swing Bed. The patient has agreed to both Swing Bed admission and/or Home Health with physical therapy on discharge. The family is still not decided on what agency she will use. I will keep the Coffey for another 24 hours. I have ordered bladder training for in the morning. I have her some magnesium supplementation and I will recheck her labs in the morning and we will continue to monitor her closely and follow as needed. Dr. Mayer is the collaborating physician available for consultation. #[id number] [facility]
[2018-03-05] MEDS ORDERED: HYDROCORTISONE 25 MG SUPPOSITORY PR PRN (16:44)
[2018-03-05] MEDS: levoFLOXacin 250MG IV 50 ML IVPB SCH (18:34)
[2018-03-05] MEDS: ENOXAPARIN SODIUM 40 MG/0.4 ML SYG SUBCU SCH (21:22)
[2018-03-05] MEDS: IV SET AND CAP CHANGE INJ INJ SCH (22:03)
[2018-03-06] MEDS ORDERED: metroNIDAZOLE IV PREMIX 500MG 100 ML IVPB ONE ×2 (02:06→09:51)
[2018-03-06] MEDS: SODIUM CHLORIDE 0.9% (FLUSH) 10 ML SYG IV PRN (02:27)
[2018-03-06] MEDS: metroNIDAZOLE IV PREMIX 500MG 500 MG in PREMIX BAG 1 BAG IVPB SCH ×2 (02:28→09:53)
[2018-03-06] MEDS: LISINOPRIL 10 MG TAB PO SCH (08:02)
[2018-03-06 10:01] VITALS: BP 161/75; TEMP 98; O2SAT 92
[2018-03-06] MEDS ORDERED: levoFLOXacin 500 MG TAB PO SCH (14:00)
--- NOTE | 2018-03-06 15:01 | DS ---
SUPERVISING PHYSICIAN: Cheryl Diaz MD ADMISSION DIAGNOSIS: 1. Abdominal pain with possible colitis versus diverticulitis. 2. Constipation. 3. History of hypertension. 4. Mild anemia. 5. Hyponatremia. DISCHARGE DIAGNOSIS: 1. Abdominal pain with possible colitis versus diverticulitis. 2. Constipation. 3. History of hypertension. 4. Mild anemia. 5. Hyponatremia. HOSPITAL COURSE: This is an 87-year-old female who presented to the Emergency Room with abdominal pain. Apparently, she had been moving from one house in [facility] to another house. During that time, she had a fall and actually sustained a compression fracture. She was given some pain medications by her primary care provider, Dr. Pérez, but she states that her constipation actually started prior to this. Due to the constipation, she started to take some Milk of Magnesia. She took two doses on one day and then took another dose the next day. She also states she took a small Dulcolax pill. The abdominal pain pretty much started the day prior to admission. For that reason , she came to the Emergency Room. When she came to the Emergency Room, her workup included labs as well as CT scan of the abdomen and pelvis. CT scan of the abdomen and pelvis showed mild soft tissue stranding of the mesentery of the pelvis and mild to moderate thickening of the wall of the rectosigmoid with diverticulosis in the region. There were also some nonobstructive renal stones measuring up to 4 mm on the right and nonobstructive renal stone, 4 mm, on the left as well. It also notes that there is moderate stool in the rectum. However, on my personal review of the CT scan, it looks as if there is significant fecal material throughout the colon. Her labs show an elevated white count of 17,000. She is quite tender in the left lower quadrant and for these reasons, she was referred for admission. Throughout the admission, her white count responded accordingly with the Levaquin and Flagyl. She was able to have bowel movements, however, she was experiencing some discomfort with the bowel movements. She had a Fleets enema and was given some Milk of Magnesia as well. She did produce some results with this, but I do not feel like she is completely cleared out yet. However, given her resolution of leukocytosis and improvement in abdominal pain, she will be discharged today. She is, however, quite weak still and participating in physical therapy. For that reason, she is going to be placed in Swing Bed status. I have changed her antibiotics to p.o. and physical therapy will work with her. DISCHARGE MEDICATIONS: Please see the discharge medication reconciliation record. ACTIVITY: As per physical therapy. DIET: Unchanged. #[id number] [facility]
[2018-03-06] MEDS ORDERED: metroNIDAZOLE 500 MG TAB PO SCH (18:00)
== END 2018-03-06 12:13 | disposition swing bed (61) | DRG 392 ==
LOC: ER 14:03 → MS 20:47 → OBSVTOIN 20:47
PROVIDERS: ADMIT Nurse Practitioner; ATTEND Nurse Practitioner
PROC: BW210ZZ Computerized Tomography (CT Scan) of Abdomen and Pelvis using High Osmolar Contrast (ICD-10-PCS; principal; 2018-02-27)
DX: K57.32 Diverticulitis of large intestine without perforation or abscess without bleeding (principal); E87.1 Hypo-osmolality and hyponatremia; K58.9 Irritable bowel syndrome, unspecified; K59.00 Constipation, unspecified; I10 Essential (primary) hypertension; D64.9 Anemia, unspecified; N20.0 Calculus of kidney; R53.1 Weakness; K59.4 Anal spasm; R63.0 Anorexia; E87.6 Hypokalemia; E87.5 Hyperkalemia; T80.89XA Other complications following infusion, transfusion and therapeutic injection, initial encounter; Y92.230 Patient room in hospital as the place of occurrence of the external cause; R32 Unspecified urinary incontinence; F17.210 Nicotine dependence, cigarettes, uncomplicated; Z60.2 Problems related to living alone; Z79.899 Other long term (current) drug therapy

== ENCOUNTER 2018-03-06 12:15 | Inpatient (IN) | payer MEDICARE ==
--- NOTE | 2018-03-06 12:39 | HP ---
SUPERVISING PHYSICIAN: Cheryl Diaz MD CHIEF COMPLAINT: Muscle weakness. HISTORY OF PRESENT ILLNESS: This is an 87-year-old female who was admitted as an inpatient from 02/27/18 through 03/06/18 for a colitis. She had sustained a compression fracture and subsequently had some constipation. She came in with abdominal pain and a CT scan revealed colitis along with leukocytosis. She was placed on antibiotics accordingly and progressed throughout the admission as far as her pain was concerned, but still had some problems with constipation as well as muscle weakness. The colitis and constipation were treated accordingly. However, physical therapy continued to work with her and it is felt that she would benefit from further physical therapy in Swing Bed status. For that reason, she was discharged from inpatient and placed in Swing Bed status. PAST MEDICAL HISTORY: 1. Hypertension. 2. Diverticulosis without diverticulitis. 3. Recent admission for colitis. 4. Problems with constipation. 5. Compression fracture. PAST SURGICAL HISTORY: 1. Hysterectomy. 2. Cholecystectomy. 3. Cervical spine surgery. 4. Tonsillectomy. 5. Eye surgery. CURRENT MEDICATIONS: 1. Albuterol nebulizers every 4 hours as needed for shortness of breath. 2. B&O suppository every 6 hours p.r.n. 3. Lovenox 40 mg q.24h. 4. Anusol HC suppository t.i.d. p.r.n. 5. Lavaged 750 mg p.o. q.24h. 6. Lidocaine topical t.i.d. 7. Lisinopril 30 mg p.o. daily. 8. Flagyl 500 mg p.o. q.8h. 9. Tramadol 50 to 100 mg p.o. q.6h. p.r.n. for pain. ALLERGIES: NO KNOWN DRUG ALLERGIES. FAMILY HISTORY: Reviewed and noncontributory. SOCIAL HISTORY: The patient lives alone and is . No drinking, no smoking, no illicit drugs. REVIEW OF SYSTEMS: CONSTITUTIONAL: No fever or chills. No recent weight loss or weight gain. HEENT: No headaches, vision changes, ear pain, nasal congestion or throat pain. RESPIRATORY: No cough, hemoptysis or pleuritic chest pain. CARDIOVASCULAR: No chest pain, palpitations or peripheral edema. GASTROINTESTINAL: Positive for current constipation. Recent admission for colitis. GENITOURINARY: No dysuria, frequency or flank pain. HEMATOLOGIC: No easy bruising and no transfusion reaction. MUSCULOSKELETAL: Positive for back pain. No joint pain or joint swelling. No muscle cramps. ENDOCRINE: No polydipsia, polyuria, polyphagia. No heat or cold intolerance. NEUROLOGIC: No syncope, paresthesias, dizziness. PHYSICAL EXAMINATION: VITAL SIGNS: Blood pressure 141/72. Heart rate 78. Respiratory rate 16. Temperature 98.2. Oxygen saturation 93%. GENERAL: Ms. Rodríguez is an 87-year-old female in no active distress currently. HEENT: Normocephalic, atraumatic. Pupils are equal and reactive. No nasal drainage. Throat with moist mucosa. NECK: Supple. Midline trachea. No jugular venous distention. CHEST: Symmetrical with equal rise and fall of the chest with inspiration and expiration. Lung sounds are clear to auscultation bilaterally. CARDIOVASCULAR: Regular rate and rhythm. Normal S1, S2. ABDOMEN: Soft. Positive bowel sounds. A little bit of left lower quadrant tenderness to palpation, but this is on deep palpation. GENITOURINARY: Deferred. EXTREMITIES: Lower extremities with no edema. NEUROLOGIC: The patient is alert and oriented. 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 2. Hypertension, controlled. 3. Recent admission for colitis. 4. Constipation. PLAN: At this time, we will admit to Swing Bed for further physical therapy. Additionally, I have continued her antibiotics p.o. and we will continue these for another 3 days and discontinue and that will complete a 10-day course. She is still having some issues with constipation, so I will order some p.r.n. Milk of Magnesia. She already received enema today. We will continue all her home medications as well. #[id number] [facility]
[2018-03-06] MEDS ORDERED: OPIUM PR PRN (13:08)
[2018-03-06] MEDS ORDERED: HYDROCORTISONE 25 MG SUPPOSITORY PR PRN (13:08)
[2018-03-06] MEDS ORDERED: BELLADONNA PR PRN (13:08)
[2018-03-06] MEDS ORDERED: ALBUTEROL SULFATE 2.5 MG/3 ML VIAL NEB PRN (13:08)
[2018-03-06] MEDS ORDERED: SODIUM CHLORIDE 0.9% (FLUSH) 10 ML SYG IV PRN (13:10)
[2018-03-06] MEDS ORDERED: LIDOCAINE 2 % GEL 5 ML TUBE TOP PRN (13:10)
[2018-03-06] MEDS ORDERED: SODIUM PHOS/BIPHOS ENEMA ADULT 133 ML BTTL PR PRN (13:13)
[2018-03-06] MEDS ORDERED: ACETAMINOPHEN 500 MG TAB PO PRN (13:13)
[2018-03-06] MEDS ORDERED: MAGNESIUM HYDROXIDE 30 ML UD PO PRN (13:13)
[2018-03-06] MEDS ORDERED: metroNIDAZOLE 500 MG TAB ONE (13:24)
[2018-03-06] MEDS ORDERED: levoFLOXacin 500 MG TAB ONE (13:24)
[2018-03-06] MEDS: ENOXAPARIN SODIUM 40 MG/0.4 ML SYG SUBCU SCH (13:27)
[2018-03-06] MEDS: levoFLOXacin 500 MG TAB PO SCH (13:27)
[2018-03-06] MEDS: metroNIDAZOLE 500 MG TAB PO SCH (17:30)
[2018-03-06] MEDS: traMADol HCL 50 MG TAB PO PRN (21:23)
[2018-03-07] MEDS: metroNIDAZOLE 500 MG TAB PO SCH ×3 (02:23→18:09)
[2018-03-07] MEDS ORDERED: DOCUSATE SODIUM 100 MG CAP ONE (06:53)
[2018-03-07] MEDS ORDERED: LISINOPRIL 10 MG TAB ONE (06:53)
[2018-03-07] MEDS ORDERED: MAGNESIUM CITRATE 300 ML BTTL PO ONE (08:40)
[2018-03-07] MEDS: LISINOPRIL 10 MG TAB PO SCH (08:56)
[2018-03-07] MEDS: DOCUSATE SODIUM 100 MG CAP PO SCH (08:56)
[2018-03-07] MEDS: traMADol HCL 50 MG TAB PO PRN (12:49)
[2018-03-07] MEDS: ENOXAPARIN SODIUM 40 MG/0.4 ML SYG SUBCU SCH (12:53)
[2018-03-07] MEDS ORDERED: ONDANSETRON INJ 4 MG/2 ML VIAL IV PRN (13:51)
[2018-03-07] MEDS ORDERED: ONDANSETRON ODT 8 MG TAB SL PRN (13:57)
[2018-03-08] MEDS: metroNIDAZOLE 500 MG TAB PO SCH ×3 (01:31→18:50)
[2018-03-08] MEDS: DOCUSATE SODIUM 100 MG CAP PO SCH (09:30)
[2018-03-08] MEDS: LISINOPRIL 10 MG TAB PO SCH (09:30)
[2018-03-08] MEDS: ENOXAPARIN SODIUM 40 MG/0.4 ML SYG SUBCU SCH (14:19)
[2018-03-08] MEDS: levoFLOXacin 500 MG TAB PO SCH (14:19)
[2018-03-08] MEDS ORDERED: TEMAZEPAM 15 MG CAP PO PRN (20:55)
[2018-03-09] MEDS: metroNIDAZOLE 500 MG TAB PO SCH (02:07)
[2018-03-09] MEDS ORDERED: SODIUM PHOS/BIPHOS ENEMA ADULT 133 ML BTTL PR ONE (08:46)
[2018-03-09] MEDS ORDERED: BIFIDOBACTERIUM INFANTIS 4 MG CAP PO SCH (09:00)
[2018-03-09] MEDS: LISINOPRIL 10 MG TAB PO SCH (09:27)
[2018-03-09] MEDS: DOCUSATE SODIUM 100 MG CAP PO SCH (09:27)
[2018-03-09 10:51] VITALS: BP 112/64; TEMP 97.2; O2SAT 93
[2018-03-09] MEDS: ENOXAPARIN SODIUM 40 MG/0.4 ML SYG SUBCU SCH (13:34)
--- NOTE | 2018-03-09 13:36 | DS ---
SUPERVISING PHYSICIAN: Cheryl Diaz MD DISCHARGE DIAGNOSIS: 1. Diffuse myopathy requiring further physical therapy. 2. Compression fracture of the lumbar spine causing mild pain. 3. Hypertension, controlled. 4. Recent admission for colitis, treated with Levaquin and Flagyl. 5. Constipation. HISTORY OF PRESENT ILLNESS: This is an 87-year-old female patient who was initially admitted to the hospital from 02/27/18 through 03/06/18 for a colitis. She had sustained a compression fracture in her lower back and subsequently had some constipation. She came in with abdominal pain and a CT scan revealed colitis along with leukocytosis. She was placed on antibiotics of Levaquin and Flagyl. She continued to have some pain and difficulty having bowel movements. She had rectal spasms when trying to have a stool. She was treated with stool softeners, suppositories and laxatives. During her stay, she was very weak, so after she completed her Acute Care stay, she was discharged from the Acute Care setting and readmitted to [facility] for physical therapy for strengthening and conditioning as well as continued antibiotic therapy. HOSPITAL COURSE: The patient lives alone in [facility] and it was decided that due to her weakened status she would be discharged to her daughter's home in [place], that she would continue with home health there and physical therapy. Ten days of antibiotics were completed. She does occasionally take tramadol for pain and her Coffey catheter was discontinued today. It had been in due to excoriation of her buttocks and difficulty getting clean as well as weakened state after her Acute Care stay. It has been undecided if she will followup with a physician in [place] or if she will continue with Dr. Pérez , her primary care physician. DISCHARGE PLAN: The patient will be discharged to her daughter's home in [place] in stable condition. She is to resume her previous activity and increase it as tolerated. She will have home health with physical therapy. She is to resume her previous diet. It has been recommended she take a daily dose of MiraLAX to assist with her problems with constipation as well as taking Align or a probiotic of choice. She is to return to the hospital or followup with her primary care physician for any problems or complications. DISCHARGE MEDICATIONS: 1. Lisinopril. 2. Tramadol. 3. Albuterol nebulizers. 4. Temazepam. #[id number] [facility]
== END 2018-03-09 17:35 | disposition home health service (06) | DRG 93 ==
LOC: UNDOADMIN 12:15 → MS 12:15
PROVIDERS: ADMIT Nurse Practitioner; ATTEND Nurse Practitioner Acute Care
DX: G72.89 Other specified myopathies (principal); K52.9 Noninfective gastroenteritis and colitis, unspecified; I10 Essential (primary) hypertension; K59.00 Constipation, unspecified; S32.000D Wedge compression fracture of unspecified lumbar vertebra, subsequent encounter for fracture with routine healing; Z79.891 Long term (current) use of opiate analgesic; Z79.899 Other long term (current) drug therapy